=== PATIENT | male | born 1990 | race African-American/Black ===

== ENCOUNTER 2024-02-10 04:55 | Emergency (ER) | payer MEDICAID ==
[~2024-02-10] VITALS: Ht 172.7 cm; Wt 90.0 kg
[2024-02-10 04:58] VITALS: BP 113/84; PULSE 86; RESP 18; TEMP 98.6; O2SAT 96
[2024-02-10] MEDS: IBUPROFEN 600MG TABLET PO ONE (05:30)
[2024-02-10] MEDS ORDERED: METH-653 MT (06:13)
== END 2024-02-10 06:23 | disposition home or self-care (01) ==
LOC: ER 05:01
DX: R05.9 Cough, unspecified (principal); M54.9 Dorsalgia, unspecified; Z86.59 Personal history of other mental and behavioral disorders
CPT/HCPCS: 71045; 99283